=== PATIENT | male | born 1960 | race Caucasian/White ===

== ENCOUNTER 2024-03-21 12:21 | Emergency (ER) | payer OTHER ==
[~2024-03-21] VITALS: Ht 190.5 cm; Wt 121.6 kg
[2024-03-21 14:08] VITALS: BP 126/64; PULSE 76; RESP 12; TEMP 97.3; O2SAT 98
[2024-03-21] MEDS ORDERED: MELO7.5T7 PO (14:09)
[2024-03-21] MEDS ORDERED: CYCL-839 PO (14:09)
== END 2024-03-21 14:56 | disposition home or self-care (01) ==
LOC: ER 12:21
DX: S33.5XXA Sprain of ligaments of lumbar spine, initial encounter (principal); X58.XXXA Exposure to other specified factors, initial encounter; Y93.89 Activity, other specified; Y92.89 Other specified places as the place of occurrence of the external cause; Y99.8 Other external cause status
CPT/HCPCS: 72100